=== PATIENT | male | born 1960 | race Caucasian/White ===

== ENCOUNTER → 2019-10-21 | Outpatient (REF) | payer MEDICARE | LOC: M SMT 17:26 | PROVIDERS: ATTEND Nurse Practitioner Family | DX: N39.0 Urinary tract infection, site not specified (principal) ==

== ENCOUNTER 2020-04-21 07:14 | Day surgery (SDC) | payer BC ==
[~2020-04-21] VITALS: Ht 177.8 cm; Wt 89.8 kg
[~2020-04-21 07:14] MED LIST: AMLO1TAB25 PO; ATOR1TAB21 PO; ECOT81TA5 PO; LOSA50TA88 PO; LR 1,000 ML IV ONE; VITA500C24 PO
[2020-04-21] MEDS ORDERED: ALBUTEROL SULFATE 2.5 MG/0.5 ML INH NEB SOLN INH ONE (08:00)
[2020-04-21] MEDS ORDERED: LIDOCAINE 4% INJ 5ML AMP NEB ONE (08:00)
[2020-04-21] MEDS ORDERED: dexameTHASONE 4 MG/ML 1ML VIAL (J1100 PER 1MG) As Ordered ONE (08:14)
[2020-04-21] MEDS ORDERED: ONDANSETRON 4MG/2ML VIAL As Ordered ONE (08:14)
[2020-04-21] MEDS ORDERED: LIDOCAINE 2% 100MG/5ML SDV (FOR ANES.) As Ordered ONE (08:14)
[2020-04-21] MEDS ORDERED: ROCURONIUM BROMIDE 50 MG/5 ML VIAL As Ordered ONE (08:14)
[2020-04-21] MEDS ORDERED: SUGAMMADEX SODIUM 500 MG/5 ML VIAL (BRIDION) As Ordered ONE (08:14)
[2020-04-21] MEDS ORDERED: propofoL 200 MG/20 ML VIAL As Ordered ONE (08:14)
[2020-04-21] MEDS ORDERED: MIDAZOLAM INJ 2MG/2ML VIAL (J2250 PER 1MG) As Ordered ONE (08:15)
[2020-04-21] MEDS ORDERED: fentaNYL 100 MCG/2 ML INJECTION (J3010) As Ordered ONE (08:15)
[2020-04-21] MEDS ORDERED: THROMBIN SOLN 5,000 UNITS VIAL As Ordered ONE (08:54)
[2020-04-21] MEDS ORDERED: LIDOCAINE VISCOUS 2% SOLN 15ML UDC As Ordered ONE (08:55)
[2020-04-21] MEDS ORDERED: CETACAINE SPRAY 5GM As Ordered ONE (08:55)
[2020-04-21] MEDS ORDERED: LIDOCAINE 1% SDV 30ML VIAL As Ordered ONE (08:55)
[2020-04-21] MEDS ORDERED: EPINEPHrine 1MG/10ML SYRINGE 1.5IN As Ordered ONE (08:55)
[2020-04-21] MEDS ORDERED: PHENYLephrine HCL 500 MCG/5 ML (100MCG/ML) SYRINGE (J2370) As Ordered ONE (09:36)
[2020-04-21] MEDS ORDERED: ePHEDrine SULFATE 25 MG/5 ML(5MG/ML) SYRINGE As Ordered ONE (09:36)
--- NOTE | 2020-04-21 10:34 | REP ---
INDICATION: S/P EBUS AND BRONCH. COMPARISON: Chest CT dated 03/10/2020 and portable chest dated 03/25/2020. TECHNIQUE: Single AP view of the chest performed portably with the patient upright. FINDINGS: There is no pneumothorax, hemothorax or pulmonary contusion. There is a large right parahilar lung mass, unchanged from the comparison studies. There is minor atelectasis in the lung bases bilaterally. There are no pleural effusions. The lung bourne are otherwise clear. Cardiac size is normal. IMPRESSION: No pneumothorax or hemothorax. Large right parahilar are lung mass. Minor bibasilar atelectasis. <Electronically signed by Omer Gruber > 04/21/20 [id number]
[2020-04-21] MEDS ORDERED: oxyCODONE 5MG TAB PO PRN (10:45)
[2020-04-21] MEDS ORDERED: LR 1,000 ML IV SCH (10:45)
[2020-04-21] MEDS ORDERED: ONDANSETRON 4MG/2ML VIAL IV PRN (10:45)
[2020-04-21] MEDS ORDERED: HYDROMORPHONE HCL 0.5 MG/ 0.5 ML SYRINGE (J1170 PER 1) IV PRN (10:45)
[2020-04-21] MEDS ORDERED: fentaNYL 100 MCG/2 ML INJECTION (J3010) IV PRN (10:45)
[2020-04-21 11:30] VITALS: BP 142/79
--- NOTE | 2020-04-21 12:35 | RO ---
OPERATIVE NOTE DATE OF OPERATION: 04/21/2020 PREOPERATIVE DIAGNOSIS: Abnormal chest CT, right upper lobe mass. POSTOPERATIVE DIAGNOSIS: Abnormal chest CT, right upper lobe mass. FINDINGS: Endobronchial lesions anterior segment, right upper lobe. PROCEDURE: Bronchoscopy with endobronchial ultrasound. Fine needle aspiration. PROCEDURALIST: Dominic Lozano DO SLEEVE FIXER: None. ANESTHESIA: General. Please refer to their records for details. SPECIMENS OBTAINED: Endobronchial biopsy right upper lobe. Fine needle aspiration subcarinal node and fine needle aspiration 4L precarinal node. ESTIMATED BLOOD LOSS: Less than 5 cc. DRAINS: None. None replaced. COMPLICATIONS: No observed complications DESCRIPTION OF PROCEDURE: After informed consent was reviewed with the patient in the preoperative area, he wanted to see his CT scans again; therefore, they were shown preoperatively and reviewed with the patient. He was then brought back to OR #8. Anesthesia intubated the patient with an 8.5 endotracheal tube after adequate sedation. The case was handed over to me. Time-out was performed with two patient identifiers, identifying correct site and correct procedure. The 1T190 scope was then introduced into the endotracheal tube with Cetacaine spray for anesthetization and lubrication. All airways were suctioned. There were minimal amounts of thick mucus. Tracy was splayed. The trachea was midline. 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 There were actually 4 airways to the right upper lobe. There was an anterior apical segment, posterior apical and posterior segment and anterior segment. The posterior segment was just behind the anterior segment and showed some extrinsic compression. The more apical segments were patent. There was splaying of the spur between the right mainstem and the right upper lobe. RB 4 through 10 were without endobronchial lesions. Right mainstem was normal. Right bronchus intermedius was normal. The left mainstem was normal except for some distal pitting. LB 1 through 10 was without endobronchial lesions with minimal pitting and banding. I then performed endobronchial biopsies of the anterior segment in the right upper lobe. There was quite a bit of oozing from hemorrhage. Therefore, epinephrine was placed on the site. After adequate sampling, hemostasis was assured. The 1T190 bronchoscope was removed. After adequate sampling, hemostasis was assured. The 1T190 bronchoscope was removed; endobronchial ultrasound was placed for staging. The subcarinal node was enlarged and therefore samples of this were taken. Onsite cytology suggests abnormalities. I then went to the 4L station. There was enlarged lymph node in this station. [place] were changed and fresh needles were used for biopsy. It does appear, however, that the four are noticed so large that it came over to the 4L station. However, biopsies were taken of this suggesting malignancy. After samples were taken, the endobronchial ultrasound was removed, 1T190 scope was reinserted. All areas were suctioned. Hemostasis was assured and 1T190 bronchoscope was removed. The patient is extubated in recovery and post procedure chest x-ray is pending. No observed complications up until this point.
== END 2020-04-21 11:40 | disposition home or self-care (01) ==
LOC: M SDC 07:14
PROVIDERS: ATTEND Internal Medicine Pulmonary Disease
DX: C34.11 Malignant neoplasm of upper lobe, right bronchus or lung (principal); C77.1 Secondary and unspecified malignant neoplasm of intrathoracic lymph nodes; I10 Essential (primary) hypertension; E78.5 Hyperlipidemia, unspecified; E55.9 Vitamin D deficiency, unspecified; F17.210 Nicotine dependence, cigarettes, uncomplicated; F32.9 Major depressive disorder, single episode, unspecified; K64.9 Unspecified hemorrhoids; R06.83 Snoring; Z79.899 Other long term (current) drug therapy; Z87.442 Personal history of urinary calculi; Z63.4 Disappearance and death of family member
CPT/HCPCS: 31625; 31652; 71045; 88173; 88305; 88342; J1100; J2250; J2370; J2405; J3010

== ENCOUNTER → 2020-04-27 | Outpatient (CLI) | payer BC ==
[~2020-04-27] MED LIST changes: -LR 1,000 ML IV ONE
--- NOTE | 2020-04-27 13:23 | PFTRPT ---
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 Lozano Pre and post bronchodilator studies have excellent technical quality. Forced vital capacity is normal. FEV1 is in proportion. Obstructive index is therefore normal. Expiratory limit of the flow-volume loop is reasonably normal. No significant bronchodilator response is identified. Some difficulty with the required maneuvers is identified. Total lung capacity is normal. Residual volume is in proportion. Diffusing capacity is normal and remains normal when corrected for alveolar volume. Hemoglobin is acceptable at 16.7. Airway resistance and conductance are normal. IMPRESSION: Probably normal study. MTDD
== END ==
LOC: M CARPUL 12:02
PROVIDERS: ATTEND Internal Medicine Pulmonary Disease
DX: R91.8 Other nonspecific abnormal finding of lung field (principal); F17.218 Nicotine dependence, cigarettes, with other nicotine-induced disorders